=== PATIENT | female | born 1975 | race Caucasian/White ===

== ENCOUNTER 2016-11-08 06:37 | Emergency (ER) | payer BC ==
[2016-11-08] MEDS ORDERED: HYDROMORPHONE HCL 0.5 MG/0.5 ML SYRINGE ONE (07:10)
[2016-11-08] MEDS ORDERED: LACTATED RINGERS 1,000 ML ONE ×2 (07:10→09:57)
[2016-11-08] MEDS ORDERED: ONDANSETRON 4 MG/2ML 2 ML VIAL ONE (07:10)
[2016-11-08 07:44] LABS: ABSOLUTE NEUTROPHIL COUNT 9.6 K/mm3 (1.8-7.7); BASO % 0.3 % (0.2-1.0); IMM NEUT% 0.4 % (0-1); LYMPH # 0.3 (1.0-4.8); LYMPH % 2.9 % (15-45); MEAN CELL VOLUME 82.7 fl (81.0-99.0); MEAN CORPUSCULAR HEMOGLOBIN 28.2 pg (27.0-31.0); MEAN CORPUSCULAR HGB CONC 34.1 g/dl (33.0-37.0); MEAN PLATELET VOLUME 10.5 fl (7.4-10.4); MONO # 0.3 (0.0-0.8); MONO % 2.8 % (4-12); NEUT % 93.6 % (43-75); PLATELET COUNT 251 K/mm3 (130-400); RED CELL DISTRIBUTION WIDTH 14.1 % (11.5-14.5)
[2016-11-08 08:03] LABS: ALB/GLOB RATIO 1.5 (>1.0); ALBUMIN 4.6 gm/dL (3.5-5.7); CALCIUM 9.6 mg/dL (8.6-10.3)
[2016-11-08 08:05] LABS: BAND 13 % (0-10); BASOPHIL 0 % (0-1); EOSINOPHIL 0 % (1-3); LYMPHOCYTE 2 % (15-45); MONOCYTE 2 % (4-12); NEUTROPHILS 83 % (43-75); PLATELET ESTIMATE NORMAL (NORMAL); TOTAL CELLS COUNTED 100
[2016-11-08 09:26] LABS: URINE BILIRUBIN NEGATIVE (NEGATIVE); URINE BLOOD NEGATIVE (NEGATIVE); URINE GLUCOSE (UA) TRACE (NEGATIVE); URINE LEUKOCYTE ESTERASE NEGATIVE (NEGATIVE); URINE NITRITE NEGATIVE (NEGATIVE); URINE PROTEIN 1+ (NEGATIVE); URINE UROBILINOGEN NORMAL (0-1 mg/dl)
[2016-11-08 09:30] LABS: URINE APPEARANCE CLEAR; URINE COLOR YELLOW
[2016-11-08 09:48] LABS: URINE RBC RARE /hpf; URINE WBC RARE /hpf
[2016-11-08 09:49] LABS: URINE BACTERIA 1+
[2016-11-08] MEDS ORDERED: MAALOX/LIDO2%VISC/SIMETHICONE 40 ML BOT ONE (09:57)
== END 2016-11-08 11:47 | disposition home or self-care (01) ==
LOC: ED 06:37
DX: E86.0 Dehydration (principal); R11.2 Nausea with vomiting, unspecified; R19.7 Diarrhea, unspecified; R10.84 Generalized abdominal pain
CPT/HCPCS: 83690; 85025; 80053; 81001; 96375; 99284; 96374; 96361 ×2; 99283; A9270; J2405; J7120 ×2; J1170